=== PATIENT | female | born 1945 | race Caucasian/White ===

== ENCOUNTER 2017-12-06 14:37 | Emergency (ER) | payer MEDICARE, SELFPAY ==
[2017-12-06 14:48] VITALS: BP 133/78; PULSE 67; RESP 18; TEMP 36.7; O2SAT 99
[2017-12-06 15:18] VITALS: BP 125/72; PULSE 75; O2SAT 97
--- NOTE | 2017-12-06 15:29 | DI.CT_ITS ---
SYMPTOMS/DIAGNOSIS: LEFT SIDE/LEFT GROIN PAIN, ? RENAL STONE ABDOMINAL AND PELVIC CT: CT examination of the abdomen and pelvis was performed without contrast administration. Images obtained through the lung bases show a 6 mm in diameter left lower lobe intrapulmonary nodule. This is noncalcified. Tiny calcified right and left pulmonary nodules also noted. CT of the chest is suggested to evaluate for additional intrapulmonary nodules to determine appropriate followup. Liver and spleen have unremarkable noncontrast appearance except for small hilar splenic calcifications. The pancreas is unremarkable in appearance. Gallbladder and bile ducts are CT normal. Abdominal aorta is of normal diameter. No significant abdominal wall hernia is seen. No significant abdominal or pelvic adenopathy is seen. OPERATIONS CONSULTANT structures are unremarkable. Appendix is normal. No evidence of diverticulitis or bowel obstruction. Adrenals appear normal bilaterally. Right kidney and ureter appear normal. There are nonobstructing left renal calculi. No left ureteral stone or obstruction identified. Probable small left parapelvic renal cyst also noted. CONCLUSION: 1. Nonobstructing left renal calculi. 2. A 6 mm in diameter left basilar intrapulmonary nodule. Chest CT suggested to evaluate for additional pulmonary nodules.
--- NOTE | 2017-12-06 15:31 | W.ED.GENAD ---
Discharge Plan Disposition Patient Disposition: HOME Condition: Improving Discharge Details Chief Complaint: Urinary Clinical Impression: Rib pain on left side, Left sided abdominal pain, Left groin pain Primary Care Provider: MILLIE DUPREE ED Provider: Kelin Javier Discharge Instructions Instructions: Flank Pain (ED), Groin Pain (ED), Chest Wall Pain (ED) Additional Instructions: Take Tylenol as needed and directed for pain. Take valium as needed and directed for pain with Tylenol. Alternate ice and heat to the affected area several times daily for 20 minutes at a time. Follow up with your scheduled appointment with your primary care doctor on . Return to the emergency department with any worsening or new concerning symptoms. Discharge Data Discharge Physician: Kelin Javier Medical Decision Making 72-year-old female with a history of chronic kidney disease stage III recently treated for UTI with Cipro and [place] who presents for left flank and left groin pain for the past week. Urinary symptoms now resolved. She admits to fatigue but no other associated symptoms. Vitals within normal limits. Patient has no abdominal tenderness or abnormal findings in groin and has no left groin tenderness, erythema or edema. She has tenderness palpation of her left lateral ribs but no evidence of rash, trauma. Lungs clear to auscultation. No focal deficits. Normal range of motion of lower extremities. Differential diagnosis includes UTI, pyelonephritis, kidney stone, muscle strain, shingles. Will check labs, urinalysis and CT. Will hold on NSAIDs at this time due to chronic kidney disease. Will give a dose of Valium and fluids. 1700 --labs reviewed and essentially unremarkable. Lipase 429, but in the setting of no left upper quadrant abdominal pain, nonspecific. Renal function note a BUN of 25, creatinine 1.22, GFR 43. CT negative for acute findings, incidentally notes a 6mm nodular density at left lung base. Patient was informed of this finding and advised to follow-up with PCP for repeat CT chest in 12 months. 5 --Patient states her left side and flank pain are improving and left arm pain resolved after Valium. Patient feels much better and is requesting to go home. She is staying at a local hotel and returns back to [place] on Friday. Will send home with 3 tabs of Valium. She is instructed to alternate ice and heat. It was discussed that her symptoms may evolve, change or worsen, and to return immediately with any concerns. She is instructed to follow-up with her scheduled appointment with her primary care doctor this . HPI General Mode of arrival: ambulatory. Date/Time Provider Initiated Documentation: 12/06/17 14:56. Limitations to Documentation: no limitations. Information obtained by: patient. HPI Narrative: Patient is a 72-year-old female with a history of chronic kidney disease stage III who presents for left flank pain and left groin pain for the past few days. Patient states the pain in her left flank is intermittent and sharp and is currently 5/10. Patient states the pain in her left groin is intermittent and sharp as well and currently 7/10. Patient denies any aggravating or alleviating factors. She does admit to some fatigue. She denies fever, rash nausea, vomiting, diarrhea, abdominal pain, urinary symptoms, cough, chest pain, shortness of breath. States her last bowel movement was this morning and denies any rectal bleeding. Patient states she was having suprapubic pressure and pulling with urination 1 week ago while in [place] and was seen at an urgent care and diagnosed with UTI and given a prescription for Cipro for 5 days which a few days ago. She states her urinary symptoms have resolved since then. She states she was called by a lab notifying her that they did the wrong test and advised her to come back for a repeat urinalysis. Patient informed then that she was traveling here and would not be back till next week. Patient states she has an appoint with her primary care doctor next . 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: [place] Related Data Allergies Allergy/AdvReac Type Severity Reaction Status Date / Time shellfish derived AdvReac Intermediate tachycardia Unverified 12/06/17 15:19 Sulfa (Sulfonamide AdvReac Mild Skin Rash Unverified 12/06/17 15:20 Antibiotics) General Stated Complaint: Urinary ALAINA: 3 Review of Systems Review of Systems All systems reviewed & are unremarkable except as noted in HPI and below Constitutional Denies chills, Denies excessive sweating, Reports fatigue, Denies fever(s), Denies weakness and Denies weight loss Eyes Reports system reviewed and no additional complaints, except as docu and Denies blurry vision ENT Denies vertigo, Denies dizziness, Denies otalgia, Denies nasal congestion, Denies sore throat and Denies throat swelling Cardiovascular Denies chest pain, Denies syncope, Denies rapid heart rate and Denies dyspnea Respiratory Denies dyspnea Gastrointestinal Denies abdominal pain, Denies diarrhea and Denies vomiting Genitourinary Denies hematuria, Denies dysuria and Reports flank pain Musculoskeletal Denies back pain and Denies joint swelling Integumentary/Breasts Denies lesions and Denies rash Neurologic Denies behavioral changes, Denies confusion, Denies vertigo, Denies dizziness, Denies syncope and Denies weakness Psychiatric Denies behavioral changes, Denies confusion and Denies depression Endocrine Denies excessive sweating and Reports fatigue Hematologic/Lymphatic Denies easy bruising and Denies lymphadenopathy Allergic/Immunologic Denies throat swelling PFSH Social History Smoking/Tobacco Use Status: Never Exam Const General: cooperative and healthy appearing Orientation: alert and awake HENVA Head: normal to inspection Ears: hearing grossly normal bilaterally and external ears normal General nose exam: external nose normal Face and sinus: normal facial exam Eyes General: appearance normal, both eyes and all related structures Eyelids: eyelids normal EOM: EOM intact bilaterally Neck Neck: normal visual inspection Lymphatic: no lymphadenopathy noted Chest Chest: normal inspection of the chest Resp Effort & Inspection: normal respiratory effort and able to speak in complete sentences Auscultation: clear to auscultation bilaterally Cardio Rate: regular rate Rhythm: regular rhythm GI Inspection: normal to inspection Palpation: soft, not firm, no guarding, no hepatosplenomegaly, no masses and nontender Auscultation: normal bowel sounds General: other (No left groin tenderness to palpation, erythema, edema or bulging) Back/Spine/Pelvis Back: no CVA tenderness Thoracic/Lumbar Spine: other (Tenderness to palpation along left lateral and posterior inferior ribs.) Skin General skin exam: no rashes or lesions noted Neuro General: alert and awake Cognition: normal cognition Speech: speech normal Gait: normal gait Motor: muscle tone normal throughout Sensory Exam: no sensory deficits noted Extrem General: normal to inspection, full ROM and normal capillary refill Psych Appearance: grossly normal Mental Status: mental status grossly normal Speech and Movement: speech and movement normal Affect: normal affect Thought Process: normal Course Vital Signs Temperature 98.0 F 12/06/17 14:48 Pulse 67 12/06/17 14:48 Respiratory Rate 18 12/06/17 14:48 Blood Pressure 133/78 12/06/17 14:48 Pulse Oximetry 99 12/06/17 14:48 Temperature 98.0 F 12/06/17 14:48 Temperature Source Temporal Artery Scan 12/06/17 14:48 Pulse 75 12/06/17 15:18 Respiratory Rate 18 12/06/17 14:48 Blood Pressure 125/72 12/06/17 15:18 Pulse Oximetry 97 12/06/17 15:18 Oxygen Delivery Method Room Air 12/06/17 15:18 Oxygen Flow Rate 0 12/06/17 15:18 Pain Level 4 12/06/17 15:15
--- NOTE | 2017-12-06 15:38 | ED.GENADUL_ITS ---
Discharge Plan Disposition Patient Disposition: HOME Condition: Improving Discharge Details Chief Complaint: Urinary Clinical Impression: Rib pain on left side, Left sided abdominal pain, Left groin pain Primary Care Provider: MILLIE DUPREE ED Provider: Kelin Javier Discharge Instructions Instructions: Flank Pain (ED), Groin Pain (ED), Chest Wall Pain (ED) Additional Instructions: Take Tylenol as needed and directed for pain. Take valium as needed and directed for pain with Tylenol. Alternate ice and heat to the affected area several times daily for 20 minutes at a time. Follow up with your scheduled appointment with your primary care doctor on . Return to the emergency department with any worsening or new concerning symptoms. Discharge Data Discharge Physician: Kelin Javier Medical Decision Making 72-year-old female with a history of chronic kidney disease stage III recently treated for UTI with Cipro and [place] who presents for left flank and left groin pain for the past week. Urinary symptoms now resolved. She admits to fatigue but no other associated symptoms. Vitals within normal limits. Patient has no abdominal tenderness or abnormal findings in groin and has no left groin tenderness, erythema or edema. She has tenderness palpation of her left lateral ribs but no evidence of rash, trauma. Lungs clear to auscultation. No focal deficits. Normal range of motion of lower extremities. Differential diagnosis includes UTI, pyelonephritis, kidney stone, muscle strain , shingles. Will check labs, urinalysis and CT. Will hold on NSAIDs at this time due to chronic kidney disease. Will give a dose of Valium and fluids. 1700 --labs reviewed and essentially unremarkable. Lipase 429, but in the setting of no left upper quadrant abdominal pain, nonspecific. Renal function note a BUN of 25, creatinine 1.22, GFR 43. CT negative for acute findings, incidentally notes a 6mm nodular density at left lung base. Patient was informed of this finding and advised to follow-up with PCP for repeat CT chest in 12 months. 5 --Patient states her left side and flank pain are improving and left arm pain resolved after Valium. Patient feels much better and is requesting to go home. She is staying at a local hotel and returns back to [place] on Friday. Will send home with 3 tabs of Valium. She is instructed to alternate ice and heat. It was discussed that her symptoms may evolve, change or worsen, and to return immediately with any concerns. She is instructed to follow-up with her scheduled appointment with her primary care doctor this . HPI General Mode of arrival: ambulatory . Date/Time Provider Initiated Documentation: 12/06/17 14:56 . Limitations to Documentation: no limitations . Information obtained by: patient . HPI Narrative: Patient is a 72-year-old female with a history of chronic kidney disease stage III who presents for left flank pain and left groin pain for the past few days. Patient states the pain in her left flank is intermittent and sharp and is currently 5/10. Patient states the pain in her left groin is intermittent and sharp as well and currently 7/10. Patient denies any aggravating or alleviating factors. She does admit to some fatigue. She denies fever, rash nausea, vomiting, diarrhea, abdominal pain, urinary symptoms , cough, chest pain, shortness of breath. States her last bowel movement was this morning and denies any rectal bleeding. Patient states she was having suprapubic pressure and pulling with urination 1 week ago while in [place] and was seen at an urgent care and diagnosed with UTI and given a prescription for Cipro for 5 days which a few days ago. She states her urinary symptoms have resolved since then. She states she was called by a lab notifying her that they did the wrong test and advised her to come back for a repeat urinalysis. Patient informed then that she was traveling here and would not be back till next week. Patient states she has an appoint with her primary care doctor next . 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: [place] Related Data Allergies Allergy/AdvReac Type Severity Reaction Status Date / Time shellfish derived AdvReac Intermediate tachycardia Unverified 12/06/17 15:19 Sulfa (Sulfonamide AdvReac Mild Skin Rash Unverified 12/06/17 15:20 Antibiotics) General Stated Complaint: Urinary ALAINA: 3 Review of Systems Review of Systems All systems reviewed & are unremarkable except as noted in HPI and below Constitutional Denies chills, Denies excessive sweating, Reports fatigue, Denies fever(s), Denies weakness and Denies weight loss Eyes Reports system reviewed and no additional complaints, except as docu and Denies blurry vision ENT Denies vertigo, Denies dizziness, Denies otalgia, Denies nasal congestion, Denies sore throat and Denies throat swelling Cardiovascular Denies chest pain, Denies syncope, Denies rapid heart rate and Denies dyspnea Respiratory Denies dyspnea Gastrointestinal Denies abdominal pain, Denies diarrhea and Denies vomiting Genitourinary Denies hematuria, Denies dysuria and Reports flank pain Musculoskeletal Denies back pain and Denies joint swelling Integumentary/Breasts Denies lesions and Denies rash Neurologic Denies behavioral changes, Denies confusion, Denies vertigo, Denies dizziness, Denies syncope and Denies weakness Psychiatric Denies behavioral changes, Denies confusion and Denies depression Endocrine Denies excessive sweating and Reports fatigue Hematologic/Lymphatic Denies easy bruising and Denies lymphadenopathy Allergic/Immunologic Denies throat swelling PFSH Social History Smoking/Tobacco Use Status: Never Exam Const General: cooperative and healthy appearing Orientation: alert and awake HENTN Head: normal to inspection Ears: hearing grossly normal bilaterally and external ears normal General nose exam: external nose normal Face and sinus: normal facial exam Eyes General: appearance normal, both eyes and all related structures Eyelids: eyelids normal EOM: EOM intact bilaterally Neck Neck: normal visual inspection Lymphatic: no lymphadenopathy noted Chest Chest: normal inspection of the chest Resp Effort & Inspection: normal respiratory effort and able to speak in complete sentences Auscultation: clear to auscultation bilaterally Cardio Rate: regular rate Rhythm: regular rhythm GI Inspection: normal to inspection Palpation: soft, not firm, no guarding, no hepatosplenomegaly, no masses and nontender Auscultation: normal bowel sounds General: other (No left groin tenderness to palpation, erythema, edema or bulging) Back/Spine/Pelvis Back: no CVA tenderness Thoracic/Lumbar Spine: other (Tenderness to palpation along left lateral and posterior inferior ribs.) Skin General skin exam: no rashes or lesions noted Neuro General: alert and awake Cognition: normal cognition Speech: speech normal Gait: normal gait Motor: muscle tone normal throughout Sensory Exam: no sensory deficits noted Extrem General: normal to inspection, full ROM and normal capillary refill Psych Appearance: grossly normal Mental Status: mental status grossly normal Speech and Movement: speech and movement normal Affect: normal affect Thought Process: normal Course Vital Signs Temperature 98.0 F 12/06/17 14:48 Pulse 67 12/06/17 14:48 Respiratory Rate 18 12/06/17 14:48 Blood Pressure 133/78 12/06/17 14:48 Pulse Oximetry 99 12/06/17 14:48 Temperature 98.0 F 12/06/17 14:48 Temperature Source Temporal Artery Scan 12/06/17 14:48 Pulse 75 12/06/17 15:18 Respiratory Rate 18 12/06/17 14:48 Blood Pressure 125/72 12/06/17 15:18 Pulse Oximetry 97 12/06/17 15:18 Oxygen Delivery Method Room Air 12/06/17 15:18 Oxygen Flow Rate 0 12/06/17 15:18 Pain Level 4 12/06/17 15:15
[2017-12-06 15:47] LABS: Bilirubin Negative (Negative); Blood Negative (Negative); Clarity Clear; Glucose Negative (Negative); Ketones Negative (Negative); Leukocyte Esterase Negative (Negative); Nitrite Negative (Negative); Urobilinogen 0.2 EU/dL (Up TO 0.2)
[2017-12-06] MEDS: Diazepam 2 MG TAB PO ×2 (15:49→17:43)
[2017-12-06] MEDS: Normal Saline 1,000 ML 1000 ML IV (15:55)
[2017-12-06 16:10] LABS: HCT 39.7 % (36.0-46.0); HGB 13.4 g/dL (12.0-15.5); Mean Corp. HGB Concentration 33.8 g/dL (32.0-36.0); Mean Corpuscular Hemoglobin 31.4 pg (27.0-33.0); Mean Platelet Volume 9.1 fL (8.0-11.0); Platelet Count 256 x1000/uL (130-400); RBC 4.27 m/cumm (4.00-5.20); White Blood Cell Count 5.56 k/cumm (4.4-10.8)
[2017-12-06 16:21] LABS: ALT 30 U/L (12-78); AST 26 U/L (15-37); Albumin 3.8 g/dL (3.4-5.0); Alkaline Phosphatase 43 U/L (46-116); Anion Gap 8.7 mmol/L (3-11); BUN 25 mg/dL (7-18); Bilirubin, Total 0.3 mg/dL (0.2-1.0); CO2 29.3 mmol/L (21.0-32.0); CREATININE 1.22 mg/dL (0.55-1.02); Calcium 9.1 mg/dL (8.5-10.1); Chloride 104 mmol/L (98-107); Estimated GFR 43.57 (mL/min/1.73m2); Glucose 100 mg/dL (70-100); Lipase 429 U/L (73-393); Potassium 4.1 mmol/L (3.5-5.1); Sodium 142 mmol/L (136-145); Total Protein 7.6 g/dL (6.4-8.2)
--- NOTE | 2017-12-06 16:44 | DI.VRAD_ITS ---
EXAM: CT Abdomen and Pelvis Without Intravenous Contrast CLINICAL HISTORY: 72 years old, female; Pain; Abdominal pain; Localized; Left; Patient HX: L side/l groin pain; Additional info: R/O renal stone TECHNIQUE: Axial computed tomography images of the abdomen and pelvis without intravenous contrast. Coronal and sagittal reformatted images were created and reviewed. COMPARISON: No relevant prior studies available. FINDINGS: 6 mm nodular density at the left lung base with additional smaller calcified nodules. Please see the final report for details as to the local protocol for followup. Fleischner criteria are also included below. Multiple punctate nonobstructing left renal stones. No ureteral stones. Appendix appears normal. No focal inflammatory process. No significant free fluid. No evidence of bowel obstruction. IMPRESSION: Multiple incidental findings as described. No specific etiology identified for patient's symptoms. As per Fleischner Society guidelines for follow-up and management of pulmonary nodules: For patients at low risk (minimal or absent history of smoking and of other known risk factors), recommend follow-up chest CT at 12 months; if unchanged, no further follow-up. For patient at high risk (history of smoking or of other known risk factors), recommend initial follow-up chest CT at 6-12 months, then at 18-24 months if no interval change. Dictated and Authenticated by: John Tariq MD. Ordering:DENA LAM MD
[2017-12-06 17:15] VITALS: BP 108/48; PULSE 68; RESP 14; TEMP 36.6; O2SAT 97
[2017-12-06 17:42] VITALS: BP 131/72; PULSE 69; RESP 14; TEMP 36.9; O2SAT 98
== END 2017-12-06 18:03 | disposition home or self-care (01) ==
PROVIDERS: Emergency Provider Physician Assistant
DX: R10.12 Left upper quadrant pain (principal); R10.32 Left lower quadrant pain; R07.81 Pleurodynia; N18.3 Chronic kidney disease, stage 3 (moderate); R91.1 Solitary pulmonary nodule
CPT/HCPCS: 36415; 80053; 83690; 85027; 96360; 99284; 74176; 81003; 99285